=== PATIENT | male | born 1960 | race Caucasian/White ===

== ENCOUNTER 2018-02-27 05:41 | Day surgery (SDC) | payer BC ==
[2018-02-25 12:30] VITALS: BP 145/76
[2018-02-25 12:43] LABS: BASOPHILS % (AUTO) 0.8 % (0.0-5.0); EOSINOPHILS % (AUTO) 5.3 % (0.0-8.0); LYMPHOCYTES % (AUTO) 33.9 % (21.0-51.0); MEAN CORPUSCULAR HEMOGLOBIN 32.5 pg (27.0-33.0); MEAN CORPUSCULAR HGB CONC 35.3 g/dL (32.0-36.0); MEAN CORPUSCULAR VOLUME 92.1 fL (79-99); MONOCYTES % (AUTO) 7.1 % (3.0-13.0); NEUTROPHILS % (AUTO) 52.9 % (40.0-77.0); NUCLEATED RED BLOOD CELLS 0.1 % (0.0-0.19); PLATELET COUNT (AUTO) 304 K/uL (130-400); RED BLOOD CELL COUNT(AUTO) 4.89 MIL/uL (4.50-6.20); RED CELL DISTRIBUTION WIDTH 13.5 % (11.0-15.5); WHITE BLOOD COUNT (AUTO) 8.3 K/uL (4.8-10.8)
[2018-02-25 12:49] LABS: APPEARANCE,URINE Clear (CLEAR); BILIRUBIN,URINE Negative (NEGATIVE); GLUCOSE, URINE (UA) Negative (NEGATIVE); KETONES,URINE Negative (NEGATIVE); LEUKOCYTE ESTERASE ,URINE Negative (NEGATIVE); NITRATE,URINE Negative (NEGATIVE); OCCULT BLOOD,URINE Negative (NEGATIVE); PROTEIN,URINE Negative (NEGATIVE)
[2018-02-25 12:51] LABS: POTASSIUM 3.8 mmol/L (3.5-5.1)
[2018-02-25 12:52] LABS: COLOR,URINE YELLOW (YELLOW)
[2018-02-25 12:56] LABS: INR 0.93 (0.85-1.15); PARTIAL THROMBOPLASTIN TIME 26.8 SEC (26.3-35.5); PROTHROMBIN TIME 9.8 SEC (9.6-11.6)
[2018-02-27] VITALS (10 sets, daily range): BP systolic 119–148; BP diastolic 64–89
[~2018-02-27] VITALS: Ht 188 cm; Wt 114.3 kg
[~2018-02-27 05:41] MED LIST: ASPI-1181 PO; ROSU5TAB11 PO
[2018-02-27] MEDS ORDERED: SODIUM CHLORIDE 0.9% 1000ML 1,000 ML IV ONE (06:40)
[2018-02-27] MEDS ORDERED: FENO40TA4 PO (07:03)
[2018-02-27] MEDS ORDERED: NITROGLYCERIN 5 MG/ML 10 ML VIAL IV ONE (10:10)
[2018-02-27] MEDS ORDERED: LIDOCAINE HCL-MPF 2% 5ML VIAL ONE (10:10)
[2018-02-27] MEDS ORDERED: ISOVUE-300 100 ML VIAL IV ONE (10:12)
[2018-02-27] MEDS ORDERED: MIDAZOLAM HCL 1 MG/ML 2ML VIAL ONE ×2 (10:49→11:01)
[2018-02-27] MEDS ORDERED: FENTANYL CITRATE PF 50 MCG/1 ML 2ML VIAL ONE (10:50)
[2018-02-27] MEDS ORDERED: HEPARIN SODIUM 1000UNIT/ML 10ML VIAL ONE (11:21)
[2018-02-27] MEDS ORDERED: SODIUM CHLORIDE 0.9% 1000ML 1,000 ML IV SCH (11:31)
[2018-02-27] MEDS ORDERED: HYDRALAZINE HCL 20 MG/ML VIAL IV PRN (11:45)
[2018-02-27] MEDS ORDERED: METOPROLOL TARTRATE 1 MG/ML 5ML VIAL IV PRN (11:45)
[2018-02-27] MEDS ORDERED: ACETAMINOPHEN EXTRA STRENGTH 500 MG TABLET ONE (13:20)
[2018-02-27] MEDS ORDERED: ACETAMINOPHEN EXTRA STRENGTH 500 MG TABLET PO ONE (14:00)
== END 2018-02-27 17:18 | disposition home or self-care (01) ==
LOC: DAH 05:41
PROVIDERS: ATTEND Internal Medicine Cardiovascular Disease
DX: I73.9 Peripheral vascular disease, unspecified (principal); I87.2 Venous insufficiency (chronic) (peripheral); F17.208 Nicotine dependence, unspecified, with other nicotine-induced disorders; E78.5 Hyperlipidemia, unspecified; E66.9 Obesity, unspecified; I10 Essential (primary) hypertension; Z98.890 Other specified postprocedural states; Z79.899 Other long term (current) drug therapy; I44.4 Left anterior fascicular block; Z68.34 Body mass index [BMI] 34.0-34.9, adult
CPT/HCPCS: 36246; 36415; 71045; 75710; 80048; 81003; 85025; 85610; 85730; 93005; A4606; C1769; C1887; C1894 ×2; J1644 ×2; J2250 ×2; J3010; J3490 ×2; J7030; Q9967; 99156; 99157

== ENCOUNTER → 2022-12-28 | Outpatient (CLI) | payer OTHER ==
[~2022-12-28] VITALS: Ht 188 cm; Wt 105.7 kg
[~2022-12-28] MED LIST changes: -ASPI-1181 PO; +ASPI-1443 PO; +ATOR-2 PO; +ENAL2.5T16 PO; +FENO200C28 PO; +FENO40TA4 PO; +LEVO25CA4 PO; +METF-446 PO; -ROSU5TAB11 PO; +ROSU5TAB12 PO
[2022-12-28 10:58] LABS: HEMATOCRIT 47.4 % (42-54); MEAN CORPUSCULAR HEMOGLOBIN 30.9 pg (27.0-33.0); MEAN CORPUSCULAR HGB CONC 34.2 g/dL (32.0-36.0); MEAN CORPUSCULAR VOLUME 90.5 fL (79-99); RED BLOOD CELL COUNT(AUTO) 5.24 MIL/uL (4.50-6.20); RED CELL DISTRIBUTION WIDTH 13.7 % (11.0-15.5); WHITE BLOOD COUNT (AUTO) 12.3 K/uL (4.8-10.8)
[2022-12-28 11:12] LABS: POTASSIUM 3.7 mmol/L (3.5-5.1)
[2022-12-28 11:29] VITALS: BP 138/67
[2022-12-28 11:48] LABS: INR 0.98 (0.85-1.15); PROTHROMBIN TIME 10.7 SEC (9.6-11.6)
[2022-12-28 11:50] LABS: PARTIAL THROMBOPLASTIN TIME 29.2 SEC (26.3-35.5)
== END | disposition home or self-care (01) ==
LOC: EDSTATUS 09:00 → DAH 10:00 → UNDOADMIN 12-31 07:24 → DAHIP 12-31 07:24
PROVIDERS: ATTEND Thoracic Surgery (Cardiothoracic Vascular Surgery)
DX: Z01.812 Encounter for preprocedural laboratory examination (principal); I73.9 Peripheral vascular disease, unspecified; Z79.01 Long term (current) use of anticoagulants
CPT/HCPCS: 71045; 87426; 80048; 85027; 85610; 85730; 86850; 86900; 86901; 36415; 93005; A6260